=== PATIENT | female | born 1990 | race Caucasian/White ===

== ENCOUNTER 2024-07-08 17:00 | Outpatient (CLI) | payer BC ==
[2024-07-08 18:34] VITALS: BP 118/75; PULSE 65; RESP 16; TEMP 98.3
--- NOTE | 2024-07-23 20:35 | P.MSEPDOC ---
Presenting Problems - Arrival Data Date of Arrival on Unit: 07/08/24 Time of Arrival on Unit: 17:00 Mode of Transport: Ambulatory - Complaint OB-Reason for Admission/Chief Complaint: Other Comment: pt arrived c/o constant abd pain that started 2 hours ago. pt denies any nausea or vomitting diahrea or constapaction or bleeding. pt states the pain in on both lateral side of abd area and more worse when she sits. pt denies any problems with Medical History - Information : 1 Para: 0 Term: 0 : 0 Abortions: Spontaneous or Elective: 0 Number of Living Children: 0 - Gestational Age Gestational Age by SABIHA (wks/days): 30 Weeks and 4 Days Review of Systems - Review of Systems Constitutional: No problems Breast: No problems ENT: No problems Cardiovascular: No problems Respiratory: No problems Gastrointestinal: No problems Genitourinary: No problems Musculoskeletal: No problems Neurological: No problems Skin: No problems Vital Signs - Temperature Temperature: 98.3 F Temperature Source: Oral - Pulse Right Brachial Pulse Rate: 65 Pulse Assessment Method: Automatic Cuff - Respirations Respiratory Rate: 16 Oxygen Delivery Method: Room Air O2 Sat by Pulse Oximetry: 97 - Blood Pressure Right Arm Blood Pressure: 118/75 Blood Pressure Mean: 89 Blood Pressure Source: Automatic Cuff Medical Screen Scoring - Cervical Exam Membranes: Intact - Uterine Contractions Resting: Soft to palpation - Assessment - Baby A Baseline FHR: 130 Heart Rate - NICHD Category: Category I (Normal) NST: Reactive Physician Notification - Physician Notified Physician Notified Date: 07/08/24 Physician Notified Time: 18:05 Physician: Theresa Morrison New Order Received: Yes - Notification Comment Comment: report given and orders received may discharge patient to home with instuctions and to keep scheduled appoinment next week Maternal Triage Index - Non-Urgent/Priority 4 Non-Urgent Priority 4: Yes Criteria Met for Priority 4: pt 30 3/7 weeks arrived c/o constant abd pain.denies any bleeding . states pain is on lateral both sides of abd area. abd soft and nontender on palpation Disposition - Disposition OB Disposition: Discharge to home Discharge Date: 07/08/24 Discharge Time: 18:21 I agree with the RN Medical Screening Exam: Yes Case reviewed; plan agreed upon as documented in EMR&OBIX.: Yes Diagnosis: RELATED CONDITIONS, UNSPECIFIED, THIRD TRIMESTER
== END 2024-07-08 18:21 | disposition home or self-care (01) ==
LOC: FBPOP 17:00
PROVIDERS: ATTEND Obstetrics & Gynecology Obstetrics
DX: O26.893 Other specified pregnancy related conditions, third trimester (principal); R10.9 Unspecified abdominal pain; Z3A.30 30 weeks gestation of pregnancy
CPT/HCPCS: 59025; 99213